=== PATIENT | male | born 1940 | race Caucasian/White ===

== ENCOUNTER 2017-11-17 07:43 | Day surgery (SDC) | payer MEDICARE, OTHER ==
[~2017-11-17 07:43] MED LIST: EPINEPHRINE INJ 1 MG/10 ML DISP.SYRIN ONE; FENTANYL CITRATE INJ/PF 100 MCG/2 ML AMPUL ONE; FLUMAZENIL INJ 0.5 MG/5 ML VIAL ONE; GLUCAGON,HUMAN RECOMB 1 MG INJ ONE; GLYCOPYRROLATE INJ 0.4 MG/2 ML VIAL ONE; NALOXONE HCL INJ/PF 0.4 MG/1 ML SDV ONE; ONDANSETRON HCL INJ/PF 4 MG/2 ML SDV ONE
[2017-11-17] MEDS: MIDAZOLAM 2 MG/2 ML INJ ONE ×2 (08:10→08:15)
--- NOTE | 2017-11-17 08:49 | Discharge Summary ---
Discharge Summary (SDC) - Discharge Final Diagnosis: Need for screening colonoscopy Date of Surgery: 11/17/17 Discharge Date: 11/17/17 Condition: Good Treatment or Instructions: [facility] [place] [address] POST ENDOSCOPY DISCHARGE INSTRUCTIONS 1. Diet: Start clear liquids that a regular diet as tolerated. 2. Resume all preoperative medications. All oral anticoagulants and aspirins can be resumed 24 hours after procedure. 3. If a polypectomy was performed some bleeding per rectum may occur. This should stop within 3 days. If not, please contact the office. 4. If you had a colonoscopy you may experience some bloating and delayed return of normal bowel function for several days, your regular bowel movement pattern should resume within a week. 5. Please contact [facility] at to make an appointment with Dr. Wylie for 1 to 3 weeks following procedure. 6. If you have any questions or concerns regarding your care,treatment plan or follow up, please contact our office. 7. Per clinical guidelines we recommend you undergo a repeat colonoscopy in 10 years. Referrals: JOSIE LOWE MD [Primary Care Provider] - Discharge Diet: As Tolerated Discharge Activity: Activity As Tolerated Home Care Assistance: None Needed Report the Following to Your Physician Immediately: Shortness of Breath, Increase in Pain, Fever over 101 Degrees
--- NOTE | 2017-11-17 08:51 | Operative Report ---
Operative Report DATE OF SURGERY: 11/17/17 PREOPERATIVE DIAGNOSIS: Need for screening colonoscopy POSTOPERATIVE DIAGNOSIS: Same OPERATION: Total colonoscopy to cecum SURGEON: TEE PAYNE ANESTHESIA: Moderate Sedation TISSUE REMOVED OR ALTERED: None COMPLICATIONS: None ESTIMATED BLOOD LOSS: None INTRAOPERATIVE FINDINGS: Below PROCEDURE: Obtaining informed consent the patient was taken from the preoperative holding area to the main endoscopy suite where monitoring devices were attached to the patient. Plan and surgical timeout were conducted The patient was placed in the left lateral decubitus position with knees to chest. A perianal examination was performed. There was no visible or palpable anorectal pathology. Sphincter tone was felt to be normal. The flexible adult colonoscope was advanced through the anal rectal canal, all the way to the cecum. Visualization of the cecum was achieved and the ileocecal valve, the appendiceal orifice and transillumination of the anterior abdominal wall. This was an excellent study on the well-prepped bowel. The colonoscope was withdrawn slowly and methodically checked and the mucosa carefully. There was no evidence of tumor, stricture, bleeding or polyp. There was no evidence of diverticuloses. 4 external hemorrhoids, small and collapsed the scope was slowly withdrawn through the anal rectal canal. Complete visualization of the rectum was achieved with photodocumentation. The scope was withdrawn to the patient's anus. The patient tolerated the procedure well and was taken to the recovery area in stable condition. Guidelines, patient be appropriate candidate for follow-up colonoscopy in 10 years
[2017-11-17 10:16] VITALS: BP 136/79
== END 2017-11-17 09:40 | disposition home or self-care (01) ==
LOC: END 07:43
PROVIDERS: ATTEND Surgery
PROC: 0DJD8ZZ Inspection of Lower Intestinal Tract, Via Natural or Artificial Opening Endoscopic (ICD-10-PCS; principal; 2017-11-17 08:15)
DX: Z12.11 Encounter for screening for malignant neoplasm of colon (principal); E78.00 Pure hypercholesterolemia, unspecified; I10 Essential (primary) hypertension; F17.210 Nicotine dependence, cigarettes, uncomplicated; Z79.82 Long term (current) use of aspirin; Z79.899 Other long term (current) drug therapy
CPT/HCPCS: G0121; J2250; J3010; 45378; J0171; J1610; J2310; J2405; J3490

== ENCOUNTER 2017-11-29 14:25 | Emergency (ER) | payer MEDICARE, OTHER ==
[2017-11-29 14:51] VITALS: BP 157/80
[2017-11-29] MEDS ORDERED: LIDOCAINE 4%/TETRACAINE 0.5%/EPI 0.18% 5 ML TOPICAL SOLN TOP ONE (15:14)
[2017-11-29] MEDS ORDERED: LIDOCAINE 1% INJ-PF (10 MG/ML) 30 ML SDV INJ ONE (15:17)
[2017-11-29] MEDS ORDERED: ACETAMINOPHEN 325 MG TABLET PO ONE (15:17)
[2017-11-29] MEDS ORDERED: CEPHALEXIN 500 MG CAPSULE PO ONE (15:17)
[2017-11-29] MEDS ORDERED: DIPH/PERTUSS(ACELL)/TETANUS VAC/PF 0.5 ML SYR (>=10YO) IM ONE (15:17)
--- NOTE | 2017-11-29 15:18 | ER Document Report ---
HPI - HPI Patient complains to provider of: Finger laceration Pain Level: 4 Context: Patient is a 77-year-old male who cut his finger on a table saw on the fat pad of the left thumb. Denies any numbness or tingling distal to the laceration. Tetanus not up-to-date. States bleeding is under control. Not on a blood thinner. Pack-a-day smoker - CONSTITUTIONAL Constitutional: DENIES: Fever, Chills - EENT EENT: DENIES: Sore Throat, Ear Pain, Eye problems - NEURO Neurology: DENIES: Headache, Weakness, Vision blurred, Dizzinesss / Vertigo - CARDIOVASCULAR Cardiovascular: DENIES: Chest pain - RESPIRATORY Respiratory: DENIES: Trouble Breathing, Coughing - GASTROINTESTINAL Gastrointestinal: DENIES: Abdominal Pain, Black / Bloody Stools - URINARY Urinary: DENIES: Dysuria, Urgency, Frequency - MUSCULOSKELETAL Musculoskeletal: REPORTS: Extremity pain - L thumb Past Medical History - Social History Smoking Status: Unknown if Ever Smoked Family History: Reviewed & Not Pertinent Patient has suicidal ideation: No Patient has homicidal ideation: No - Past Medical History Cardiac Medical History: Reports: Hx Coronary Artery Disease, Hx Hypercholesterolemia, Hx Hypertension Denies: Hx Heart Attack Pulmonary Medical History: Denies: Hx Asthma, Hx Bronchitis, Hx COPD, Hx Pneumonia Neurological Medical History: Reports: Hx Seizures - reports seizure x1 when had brain aneurysm. Denies: Hx Cerebrovascular Accident Renal/ Medical History: Denies: Hx Peritoneal Dialysis Musculoskeltal Medical History: Denies Hx Arthritis Past Surgical History: Reports: Hx Neurologic Surgery - Aneurysm repair - Immunizations Hx Diphtheria, Pertussis, Tetanus Vaccination: No Vertical Provider Document - CONSTITUTIONAL Notes: PHYSICAL EXAM GENERAL: Alert, interacts well. EXTREMITIES: Moves all 4 extremities spontaneously. No edema, radial and dorsalis pedis pulses 2/4 bilaterally. No cyanosis. Capillary refill less than 2 seconds in bilateral upper extremity digits. Equal underground repairer strength. NEUROLOGICAL: Alert and oriented x4. Normal speech. PSYCH: Normal affect, normal mood. SKIN: Warm, dry, normal turgor. Jagged laceration on the fat pad of the left thumb without active bleeding Measuring approximately 2 and half centimeters. - INFECTION CONTROL TRAVEL OUTSIDE OF THE [place] IN LAST 30 DAYS: No Course - Re-evaluation Re-evalutation: 11/29/17 17:05 Patient is a 77-year-old male is hemodynamic stable, no acute distress afebrile. Patient on blood thinners. Wound irrigated Betadine and saline and closed primarily at the bedside. X-ray without evidence of underlying foreign body or tuft fracture. Patient initiated on antibiotics and given strict return precautions. Stable for discharge home. - Vital Signs Vital signs: Temp Pulse Resp BP Pulse Ox 98.1 F 91 16 157/80 H 94 11/29/17 14:49 11/29/17 14:49 11/29/17 14:49 11/29/17 14:49 11/29/17 14:49 - Diagnostic Test Radiology reviewed: Image reviewed, Reports reviewed Procedures - Laceration/Wound Repair Left Thumb Wound length (cm): 2.5 Wound's Depth, Shape: Into muscle, Linear Laceration pre-procedure: Sterile PPE donned, Betadine prep applied, Sterile drapes applied Anesthetic type: 1% Lidocaine Volume Anesthetic (mLs): 10 Wound explored: Clean, No foreign body removed Irrigated w/ Saline (mLs): 500 Wound Repaired With: Sutures Suture Size/Type: 6:0 Number of Sutures: 6 Layer Closure?: No Post-procedure wound care: Sterile dressing applied, Splint applied Post-procedure NV exam normal: Yes Complications: No Discharge - Discharge Clinical Impression: Finger laceration Qualifiers: Encounter type: initial encounter Finger: thumb Damage to nail status: without damage Foreign body presence: without foreign body Laterality: left Qualified Code(s): S61.012A - Laceration without foreign body of left thumb without damage to nail, initial encounter Condition: Good Disposition: HOME, SELF-CARE Additional Instructions: LACERATION CARE: Your laceration has been sutured to keep the skin edges aligned during healing. The time of suture removal depends on the nature and location of your cut. Please follow the care instructions the doctor has outlined for you and return for further care, according to the schedule you've been given. Keep the wound and dressing clean. Unless you were told otherwise, you may shower daily, blotting the wound dry with a clean, unused towel. At other times, If the dressing gets wet or blood soaked, remove it and blot the wound dry, then reapply a new dressing. Unless you were instructed otherwise, dressings should be changed at least daily. If any signs of infection occur (swelling, redness, drainage, increasing tenderness, red streaks, tender lumps in the armpit or groin above the laceration, or fever), see the doctor immediately. SOAP CLEANSING: Gently wash the wound daily using a mild soap (like Ivory, Phisoderm, Neutrogena). Use warm water, rubbing gently until all debris, ooze, and crusting have been washed from the wound. Allow to dry briefly (about 10 minutes) after cleaning. Repeat this cleansing at least three times a day for the first two days and then once or twice a day. ANTIBIOTIC OINTMENT PROTECTION: Your wounds are such that dressing them is not practical or optional. After cleansing, you should apply a thin coating of antibiotic ointment ( Bacitracin, not Neosporin) to the wounds at least three times daily. This lessens infection risk, and may decrease the amount of scarring. Use a q-tip or dull butter knife, not your finger, to apply this ointment. Any debris or ooze which builds up in the ointment should be gently rubbed off with a sterile gauze pad. Harder crusting may need to be gently scrubbed off with a clean wash cloth with soap and warm water, perhaps applying a warm, wet wash cloth to the wound for ten minutes first. Development of redness, severe itching, or blistering may mean allergy to the ointment. See the doctor. TETANUS IMMUNIZATION GIVEN: You have been given an immunization against tetanus. Please record this in your records. In general, a booster is needed only once every 10 years. The tetanus shot protects against tetanus or "lockjaw," which is a complication of certain wound infections (the tetanus shot cannot protect against the actual infection). The immunization site may become warm and red due to local reaction. If this occurs, apply warm compresses and take aspirin or ibuprofen to reduce inflammation and discomfort. Return for evaluation if the reaction becomes severe. PROPHYLACTIC ANTIBIOTIC: The antibiotics which have been prescribed are designed to decrease the risk of infection. Only certain types of wounds benefit from this -- the typical cut, scrape, or burn DOES NOT require antibiotics. Of course, infection can still occur despite the use of prophylactic antibiotics. Your wound will heal with less chance of an infectious complication if you take the medication as directed. The most important dose is the FIRST dose, so don't delay filling the prescription! ORAL NARCOTIC MEDICATION: You have been given a prescription for pain control. This medication is a narcotic. It's best taken with food, as nausea can result if taken on an empty stomach. Don't operate machinery or drive within six hours of taking this medication. Do not combine this medicine with alcohol, or with any medication which can cause sedation (such as cold tablets or sleeping pills) unless you get permission from the physician. Narcotics tend to cause constipation. If possible, drink plenty of fluids and eat a diet high in fiber and fruits. FOLLOW-UP CARE: Your sutures should be removed in 8-14 days. To facilitate a timely removal of your sutures, you may return to the Emergency Department at [facility]. You do not need to call for an appointment, but the best time to come in for suture removal is early in the morning. If you have been referred to another physician for follow-up care, call that physicians office for an appointment as you were instructed. If you experience a significant change in your laceration, or if you are concerned there may be an infection (swelling, redness, drainage, increasing tenderness, red streaks, tender lumps in the armpit or groin above the laceration, or fever) , return to the Emergency Department immediately re-evaluation. Prescriptions: Cephalexin Monohydrate [Keflex 500 mg Capsule] 500 mg PO Q6H 7 Days capsule Forms: Elevated Blood Pressure Referrals: JOSIE LOWE MD [Primary Care Provider] - Follow up as needed (as directed 8 -14 days)
--- NOTE | 2017-11-29 16:43 | RADIOLOGY REPORT (SQ) ---
EXAM DESCRIPTION: FINGER LEFT COMPLETED DATE/TIME: 11/29/2017 4:29 pm REASON FOR STUDY: cut on table saw COMPARISON: None. NUMBER OF VIEWS: Three views. TECHNIQUE: AP, lateral, and oblique images acquired of the left thumb. LIMITATIONS: None. FINDINGS: MINERALIZATION: Normal. BONES: No acute fracture or dislocation. Degenerative changes in the interphalangeal joint with oste ophytes. No worrisome bone lesions. SOFT TISSUES: Distal soft tissue injury. No foreign body. OTHER: No other significant finding. IMPRESSION: DISTAL SOFT TISSUE INJURY. NO FOREIGN BODY. NO FRACTURE OR BONY FINDINGS. COMMENT: SITE OF TRAUMA/COMPLAINT MARKED/STAMP COMPLETED: YES. TECHNICAL DOCUMENTATION: JOB ID: [id number] [employer]- All Rights Reserved Reading location - IP/workstation name: [email or web address]
== END 2017-11-29 17:19 | disposition home or self-care (01) ==
LOC: ER 14:25
PROC: 0HQGXZZ Repair Left Hand Skin, External Approach (ICD-10-PCS; principal; 2017-11-29)
DX: S61.012A Laceration without foreign body of left thumb without damage to nail, initial encounter (principal); W29.8XXA Contact with other powered hand tools and household machinery, initial encounter; Y93.H3 Activity, building and construction; Z23 Encounter for immunization
CPT/HCPCS: 99283; 73140; 90715; 12001; A9270 ×2; J3490

== ENCOUNTER 2017-12-13 05:53 | Emergency (ER) | payer MEDICARE, OTHER ==
[2017-12-13 05:59] VITALS: BP 171/71
--- NOTE | 2017-12-13 06:43 | ER Document Report ---
ED Suture/Wound Recheck - General Chief Complaint: Suture Removal Stated Complaint: SUTURE REMOVAL Time Seen by Provider: 12/13/17 06:10 Mode of Arrival: Ambulatory Information source: Patient Notes: 77-year-old male presents with request for suture removal. Patient states that 2 weeks prior to arrival he cut his right thumb with a table saw. He was seen at that time and sutures were placed. TRAVEL OUTSIDE OF THE [place] IN LAST 30 DAYS: No - HPI Previous ED treatment: Laceration repair Quality of pain: No pain Symptoms since procedure: No complaints Exacerbated by: Denies Relieved by: Denies - Related Data Allergies/Adverse Reactions: No Known Allergies Allergy (Verified 11/29/17 14:26) Past Medical History - General Information source: Patient - Social History Smoking Status: Unknown if Ever Smoked Frequency of alcohol use: None Drug Abuse: None Family History: Reviewed & Not Pertinent Patient has suicidal ideation: No Patient has homicidal ideation: No - Past Medical History Cardiac Medical History: Reports: Hx Coronary Artery Disease, Hx Hypercholesterolemia, Hx Hypertension Denies: Hx Heart Attack Pulmonary Medical History: Denies: Hx Asthma, Hx Bronchitis, Hx COPD, Hx Pneumonia Neurological Medical History: Reports: Hx Seizures - reports seizure x1 when had brain aneurysm. Denies: Hx Cerebrovascular Accident Renal/ Medical History: Denies: Hx Peritoneal Dialysis Musculoskeltal Medical History: Denies Hx Arthritis Past Surgical History: Reports: Hx Neurologic Surgery - Aneurysm repair - Immunizations Hx Diphtheria, Pertussis, Tetanus Vaccination: No Review of Systems - Review of Systems Notes: Patient denies fever, chills, nausea, vomiting, headache, ear pain, sore throat , cough, chest pain, shortness of breath, abdominal pain, back pain, dysuria, hematuria, rash, SI/HI. Physical Exam - Vital signs Vitals: Temp Pulse Resp BP Pulse Ox 97.7 F 94 22 H 171/71 H 97 12/13/17 05:54 12/13/17 05:54 12/13/17 05:54 12/13/17 05:54 12/13/17 05:54 Interpretation: Normal, Hypertensive - Notes Notes: PHYSICAL EXAMINATION: GENERAL: Well-appearing, well-nourished and in no acute distress. HEAD: Atraumatic, normocephalic. EYES: Pupils equal round and reactive to light, extraocular movements intact, sclera anicteric, conjunctiva are normal. ENT: Nares patent, oropharynx clear without exudates. Moist mucous membranes. NECK: Normal range of motion, supple without lymphadenopathy LUNGS: Breath sounds clear to auscultation bilaterally and equal. No wheezes rales or rhonchi. HEART: Regular rate and rhythm without murmurs ABDOMEN: Soft, nontender, nondistended abdomen. No guarding, no rebound. No masses appreciated. Musculoskeletal: Right thumb with mild swelling and a 2.5 cm wound with 8 sutures placed. Wound has dehisced. No surrounding erythema, tenderness or purulent discharge. NEUROLOGICAL: Cranial nerves grossly intact. Normal speech, normal gait. Normal sensory, motor exams PSYCH: Normal mood, normal affect. SKIN: Warm, Dry, normal turgor, no rashes or lesions noted. Course - Re-evaluation Re-evalutation: 12/13/17 07:34 77-year-old male presents with request for suture removal after cutting his right thumb with a finger saw. Patient had sutures placed 2 weeks prior to arrival. Patient was seen by myself upon arrival. Vital signs were reviewed and within normal limits. Patient is afebrile, and not hypoxic. Patient does not appear toxic or dehydrated. They are in no acute distress. Previous medical records and nursing notes reviewed. Sutures removed. Steri-Strips used to approximate wound edges. Advised the patient to let the area air out when possible but cover when out or working in the garden. There is no evidence of secondary infection. Granulation tissue present. Patient was discharged home in stable condition. - Vital Signs Vital signs: Temp Pulse Resp BP Pulse Ox 97.7 F 94 22 H 171/71 H 97 12/13/17 05:54 12/13/17 05:54 12/13/17 05:54 12/13/17 05:54 12/13/17 05:54 Discharge - Discharge Clinical Impression: Visit for suture removal Disposition: HOME, SELF-CARE Instructions: Suture Removal Additional Instructions: Follow up with your physician tomorrow for further care or return to the ED IMMEDIATELY if symptoms worsen or new concerns occur. If you cannot afford to follow up with your primary care physician a list of low cost clinics have been provided at the end of your discharge papers as well. Forms: Elevated Blood Pressure
== END 2017-12-13 06:55 | disposition home or self-care (01) ==
LOC: ER 05:53
DX: S61.011D Laceration without foreign body of right thumb without damage to nail, subsequent encounter (principal); W29.8XXD Contact with other powered hand tools and household machinery, subsequent encounter; I25.10 Atherosclerotic heart disease of native coronary artery without angina pectoris; I10 Essential (primary) hypertension

== ENCOUNTER 2019-04-25 11:25 | Emergency (ER) | payer MEDICARE, OTHER ==
[2019-04-25 11:55] LABS: ABSOLUTE BASOPHILS # (AUTO) 0.1 10^3/uL (0.0-0.2); ABSOLUTE LYMPHOCYTES (AUTO) 1.1 10^3/uL (0.5-4.7); ABSOLUTE MONOCYTES (AUTO) 0.5 10^3/uL (0.1-1.4); ABSOLUTE NEUT (AUTO) 8.1 10^3/uL (1.7-8.2); BASOPHILS % (AUTO) 0.8 % (0-2); EOSINOPHILS % (AUTO) 0.3 % (0-6); HEMATOCRIT 40.7 % (37.9-51.0); HEMOGLOBIN 13.7 g/dL (13.5-17.0); LYMPHOCYTES % (AUTO) 11.5 % (13-45); MEAN CORPUSCULAR HEMOGLOBIN 31.6 pg (27.0-33.4); MEAN CORPUSCULAR HGB CONC 33.6 g/dL (32.0-36.0); MEAN CORPUSCULAR VOLUME 94 fl (80-97); MONOCYTES % (AUTO) 4.9 % (3-13); PLATELET COUNT 226 10^3/uL (150-450); RED BLOOD COUNT 4.32 10^6/uL (4.35-5.55); RED CELL DISTRIBUTION WIDTH 13.8 % (11.5-14.0); SEGMENTED NEUTROPHILS % (AUTO) 82.5 % (42-78); TOTAL CELLS COUNTED % (AUTO) 100 %; WHITE BLOOD COUNT 9.9 10^3/uL (4.0-10.5)
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
[2019-04-25 12:19] LABS: ALBUMIN 4.2 g/dL (3.5-5.0); ALKALINE PHOSPHATASE 65 U/L (38-126); ANION GAP 13 (5-19); ASPARTATE AMINO TRANSFERASE 22 U/L (17-59); BILIRUBIN,DIRECT 0.3 mg/dL (0.0-0.4); BILIRUBIN,TOTAL 0.6 mg/dL (0.2-1.3); BLOOD UREA NITROGEN 22 mg/dL (7-20); CALCIUM 9.7 mg/dL (8.4-10.2); CARBON DIOXIDE 21 mmol/L (22-30); CHLORIDE 107 mmol/L (98-107); GLUCOSE 155 mg/dL (75-110); POTASSIUM 4.2 mmol/L (3.6-5.0)
[2019-04-25] MEDS ORDERED: NORMAL SALINE 500 ML IV ONE (12:36)
[2019-04-25 12:37] LABS: APPEARANCE,URINE SLIGHTLY-CLOUDY; BILIRUBIN,URINE NEGATIVE (NEGATIVE); COLOR,URINE YELLOW; GLUCOSE, URINE NEGATIVE (NEGATIVE); KETONES,URINE TRACE mg/dL (NEGATIVE); LEUKOCYTE ESTERASE,URINE NEGATIVE (NEGATIVE); NITRITE,URINE NEGATIVE (NEGATIVE); PROTEIN,URINE 30 mg/dL (NEGATIVE); URINE SPECIFIC GRAVITY 1.014; UROBILINOGEN,URINE NEGATIVE mg/dL (<2.0)
[2019-04-25] MEDS ORDERED: DIPH/PERTUSS(ACELL)/TETANUS VAC/PF 0.5 ML SYR (>=10YO) IM ONE (13:15)
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
[2019-04-25] MEDS ORDERED: ASPIRIN 325 MG TABLET PO ONE (13:47)
[2019-04-25 14:11] VITALS: BP 183/92
--- NOTE | 2019-04-26 14:28 | EKG REPORT ---
SEVERITY:- ABNORMAL ECG - SINUS TACHYCARDIA NONSPECIFIC T ABNORMALITIES, INFERIOR LEADS : Confirmed by: Josiah Day 26-Apr-2019 14:27:22
== END 2019-04-25 14:09 | disposition home or self-care (01) ==
LOC: ER 11:25
DX: M62.838 Other muscle spasm (principal); S80.212A Abrasion, left knee, initial encounter; S80.211A Abrasion, right knee, initial encounter; X58.XXXA Exposure to other specified factors, initial encounter; M54.2 Cervicalgia; F17.210 Nicotine dependence, cigarettes, uncomplicated; I25.10 Atherosclerotic heart disease of native coronary artery without angina pectoris; I10 Essential (primary) hypertension
CPT/HCPCS: 93005; 99284; 90471; 36415; 82550; 83735; 84100; 85025; 80053; 81001; 84484; 90715; 93010; A9270; J7040

== ENCOUNTER 2019-05-06 09:21 | Inpatient (IN) | payer MEDICARE, OTHER ==
[2019-05-06] MEDS ORDERED: NORMAL SALINE 1000 ML 1,000 ML IV ONE (09:57)
--- NOTE | 2019-05-06 10:02 | ER Document Report ---
ED Dizziness/Weakness - General Chief Complaint: Dizziness Stated Complaint: FALL/KNEE LACERATION Time Seen by Provider: 05/06/19 09:42 Information source: Patient Notes: Patient states that he was working out in the yard and he thinks he may have had a heat stroke. Patient states that he started to have muscle cramps in his leg that caused him to fall injuring his knees. Patient denies any head injury or loss of consciousness. Patient was very sweaty but attributes this to working outside in the heat. Patient denies any chest pain or shortness of breath. Patient is tachypneic at this time. No nausea or vomiting. TRAVEL OUTSIDE OF THE [place] IN LAST 30 DAYS: No - HPI Onset: Just prior to arrival Onset/Duration: Sudden Quality of pain: Cramping Pain Level: 3 Associated symptoms: Recent fall. denies: Chest pain, Vertigo, Vomiting Baseline gait: Walks w/o assistance - Related Data Allergies/Adverse Reactions: No Known Allergies Allergy (Verified 11/29/17 14:26) Past Medical History - General Information source: Patient - Social History Smoking Status: Current Every Day Smoker Smoking Education Provided: Yes Frequency of alcohol use: None Drug Abuse: None Lives with: Spouse/Significant other Family History: Reviewed & Not Pertinent - Past Medical History Cardiac Medical History: Reports: Hx Coronary Artery Disease, Hx Hypercholesterolemia, Hx Hypertension Neurological Medical History: Reports: Hx Seizures - reports seizure x1 when had brain aneurysm Musculoskeletal Medical History: Denies Hx Arthritis Past Surgical History: Reports: Hx Neurologic Surgery - Aneurysm repair - Immunizations Hx Diphtheria, Pertussis, Tetanus Vaccination: No Review of Systems - Review of Systems Constitutional: No symptoms reported EENT: No symptoms reported Cardiovascular: denies: Chest pain Respiratory: No symptoms reported. denies: Cough, Short of breath Gastrointestinal: No symptoms reported. denies: Abdominal pain, Nausea, Vomiting Genitourinary: No symptoms reported Male Genitourinary: No symptoms reported Musculoskeletal: Muscle pain - Muscle cramps to right leg, Neck pain. denies: Back pain Skin: No symptoms reported Hematologic/Lymphatic: No symptoms reported Neurological/Psychological: No symptoms reported. denies: Weakness, Lost consciousness Physical Exam - Vital signs Vitals: Resp BP Pulse Ox 30 H 145/79 H 94 05/06/19 09:33 05/06/19 09:33 05/06/19 09:33 - General General appearance: Alert In distress: Mild - HEENT Head: Normocephalic, Atraumatic Eyes: Normal Conjunctiva: Normal Nasal: Normal Mouth/Lips: Normal Mucous membranes: Dry Pharynx: Normal Neck: No: Lymphadenopathy Notes: Posterior paraspinal cervical tenderness - Respiratory Respiratory status: Tachypnea Chest status: Nontender Breath sounds: Normal Chest palpation: Normal. No: Tender - Cardiovascular Rhythm: Tachycardia Heart sounds: S1 appreciated, S2 appreciated Murmur: No - Abdominal Inspection: Normal Distension: No distension Bowel sounds: Normal Tenderness: Nontender Organomegaly: No organomegaly - Back Back: Normal, Nontender. No: CVA tenderness - Extremities General upper extremity: Normal inspection, Normal strength General lower extremity: Tender - Bilateral knee tenderness with overlying abrasions, Normal strength Knee: Tender, Abrasion, Pain with ROM. No: Deformity, Dislocation, Laceration - Neurological Neuro grossly intact: Yes Cognition: Normal Orientation: AAOx4 [place] Coma Scale Eye Opening: Spontaneous [place] Coma Scale Verbal: Oriented [place] Coma Scale Motor: Obeys Commands [place] Coma Scale Total: 15 - Psychological Associated symptoms: Normal affect, Normal mood - Skin Skin Temperature: Warm Skin Color: Normal Skin irregularity: other - Abrasion over bilateral knees Course - Re-evaluation Re-evalutation: 05/06/19 12:03 Patient continues tachypnic Patient without any shortness of breath or chest pain symptoms at this time. Patient does complain of neck pain and occipital headache pain. Family is concerned given his previous history of aneurysm. Consulted with regarding patient presentation, recommends treating patient's pain symptoms at this time and noncontrast CT imaging of the head. Recommends consultation with hospitalist for admission given the fact that patient had two falls at home with exertion. 05/06/19 12:21 Patient mildly hypertensive and has not had his blood pressure medication today. Patient takes amlodipine and Micardis. Spoke with pharmacy staff who recommends substituting losartan 50 mg for his 40 mg Micardis dose. 05/06/19 13:[address] Galindo who states that he will be down to evaluate patient. 05/06/19 14:55 Family member at bedside states that hospitalist did report that they were going to admit patient to telemetry. Patient continues hypotensive with blood pressure 180 systolic. Patient stood up in the pill felt down. Suspect that patient did not take both antihypertensive medications that the nurse had admin istered, although nurse tossed pill in the trash can so it could not be identified. - Vital Signs Vital signs: Temp Pulse Resp BP Pulse Ox 98.0 F 17 151/77 H 98 05/06/19 09:39 05/06/19 18:01 05/06/19 18:00 05/06/19 18:01 - Laboratory Result Diagrams: 05/06/19 09:45 05/06/19 09:45 Laboratory results interpreted by me: 05/06/19 05/06/19 05/06/19 09:45 09:45 10:21 WBC 14.9 H RDW 14.2 H Lymph % (Auto) 7.4 L Absolute Neuts (auto) 12.9 H Seg Neutrophils % 86.4 H Carbonic Acid 1.01 L ABG pCO2 33.7 L ABG pO2 59.0 L ABG Total CO2 21.8 L ABG O2 Saturation 91.0 L Carbon Dioxide 18 L BUN 22 H Creatinine 1.35 H Est GFR (MDRD) Non-Af 51 L Glucose 159 H Urine Protein Urine Ascorbic Acid 05/06/19 12:15 WBC RDW Lymph % (Auto) Absolute Neuts (auto) Seg Neutrophils % Carbonic Acid ABG pCO2 ABG pO2 ABG Total CO2 ABG O2 Saturation Carbon Dioxide BUN Creatinine Est GFR (MDRD) Non-Af Glucose Urine Protein 30 H Urine Ascorbic Acid 20 H - EKG Interpretation by Me EKG shows normal: Sinus rhythm Rate: Tachycardia When compared to previous EKG there are: No significant change Additional EKG results interpreted by me: 05/06/19 10:[address] elevation, QTc 462 Discharge - Discharge Clinical Impression: Dizziness, Dehydration, Near syncope Fall Qualifiers: Encounter type: initial encounter Qualified Code(s): W19.XXXA - Unspecified fall, initial encounter Condition: Stable Disposition: ADMITTED INPATIENT Admitting Provider: Mateo (Hospitalist) Unit Admitted: Telemetry
[2019-05-06 10:08] LABS: ABSOLUTE BASOPHILS # (AUTO) 0.1 10^3/uL (0.0-0.2); ABSOLUTE EOSINOPHILS # (AUTO) 0.1 10^3/uL (0.0-0.6); ABSOLUTE LYMPHOCYTES (AUTO) 1.1 10^3/uL (0.5-4.7); ABSOLUTE MONOCYTES (AUTO) 0.8 10^3/uL (0.1-1.4); ABSOLUTE NEUT (AUTO) 12.9 10^3/uL (1.7-8.2); BASOPHILS % (AUTO) 0.5 % (0-2); EOSINOPHILS % (AUTO) 0.4 % (0-6); HEMATOCRIT 42.9 % (37.9-51.0); HEMOGLOBIN 14.4 g/dL (13.5-17.0); LYMPHOCYTES % (AUTO) 7.4 % (13-45); MEAN CORPUSCULAR HEMOGLOBIN 31.3 pg (27.0-33.4); MEAN CORPUSCULAR HGB CONC 33.6 g/dL (32.0-36.0); MEAN CORPUSCULAR VOLUME 93 fl (80-97); MONOCYTES % (AUTO) 5.3 % (3-13); PLATELET COUNT 292 10^3/uL (150-450); RED CELL DISTRIBUTION WIDTH 14.2 % (11.5-14.0); SEGMENTED NEUTROPHILS % (AUTO) 86.4 % (42-78); TOTAL CELLS COUNTED % (AUTO) 100 %; WHITE BLOOD COUNT 14.9 10^3/uL (4.0-10.5)
[2019-05-06] MEDS ORDERED: IPRATROPIUM/ALBUTEROL 0.5-2.5 MG/3 ML AMPUL NEB ONE (10:15)
[2019-05-06 10:16] LABS: ALBUMIN 4.5 g/dL (3.5-5.0); ALKALINE PHOSPHATASE 65 U/L (38-126); ANION GAP 17 (5-19); ASPARTATE AMINO TRANSFERASE 28 U/L (17-59); BILIRUBIN,DIRECT 0.2 mg/dL (0.0-0.4); BILIRUBIN,TOTAL 0.8 mg/dL (0.2-1.3); BLOOD UREA NITROGEN 22 mg/dL (7-20); CALCIUM 9.5 mg/dL (8.4-10.2); CARBON DIOXIDE 18 mmol/L (22-30); CHLORIDE 103 mmol/L (98-107); CREATINE KINASE 71 U/L (55-170); GLUCOSE 159 mg/dL (75-110); POTASSIUM 4.1 mmol/L (3.6-5.0); TOTAL PROTEIN 7.4 g/dL (6.3-8.2)
--- NOTE | 2019-05-06 10:26 | EKG REPORT ---
SEVERITY:- BORDERLINE ECG - SINUS TACHYCARDIA BORDERLINE T ABNORMALITIES, INFERIOR LEADS : Confirmed by: Lucy Noel MD 06-May-2019 10:25:14
[2019-05-06 10:36] LABS: ARTERIAL BLOOD FIO2 ROOM AIR; ARTERIAL BLOOD H2CO3 1.01 mmol/L (1.05-1.35); ARTERIAL BLOOD HCO3 20.7 mmol/L (20-24); ARTERIAL BLOOD PCO2 33.7 mmHg (35-45); ARTERIAL BLOOD PH 7.41 (7.35-7.45); ARTERIAL BLOOD TOTAL CO2 21.8 mmol/L (23-27)
--- NOTE | 2019-05-06 11:06 | RADIOLOGY REPORT (SQ) ---
EXAM DESCRIPTION: CHEST 2 VIEWS; KNEE RIGHT 4 VIEWS; KNEE LEFT 4 VIEW COMPLETED DATE/TIME: 05/06/2019 10:55 am REASON FOR STUDY: tachypnea; fall, knee pain COMPARISON: None. FINDINGS: Two view chest: Clear lungs without evidence of pneumothorax. Cardiomegaly without failu re. No fracture. No mediastinal contour abnormality. Four views right knee: Small effusion. Mild degenerative patellar spurring. No fracture or bone le carlos. Osteopenic. Four views right knee: Similar findings. Osteopenic with mild degenerative patellar spurring. Trac e effusion. No fracture or bone lesion. TECHNICAL DOCUMENTATION: JOB ID: [id number] Reading location - IP/workstation name: [email or web address]
--- NOTE | 2019-05-06 11:08 | RADIOLOGY REPORT (SQ) ---
EXAM DESCRIPTION: CHEST 2 VIEWS; KNEE RIGHT 4 VIEWS; KNEE LEFT 4 VIEW COMPLETED DATE/TIME: 05/06/2019 10:55 am REASON FOR STUDY: tachypnea; fall, knee pain COMPARISON: None. FINDINGS: Two view chest: Clear lungs without evidence of pneumothorax. Cardiomegaly without failu re. No fracture. No mediastinal contour abnormality. Four views right knee: Small effusion. Mild degenerative patellar spurring. No fracture or bone le carlos. Osteopenic. Four views right knee: Similar findings. Osteopenic with mild degenerative patellar spurring. Trac e effusion. No fracture or bone lesion. TECHNICAL DOCUMENTATION: JOB ID: [id number] Reading location - IP/workstation name: [email or web address]
--- NOTE | 2019-05-06 11:08 | RADIOLOGY REPORT (SQ) ---
EXAM DESCRIPTION: CHEST 2 VIEWS; KNEE RIGHT 4 VIEWS; KNEE LEFT 4 VIEW COMPLETED DATE/TIME: 05/06/2019 10:55 am REASON FOR STUDY: tachypnea; fall, knee pain COMPARISON: None. FINDINGS: Two view chest: Clear lungs without evidence of pneumothorax. Cardiomegaly without failu re. No fracture. No mediastinal contour abnormality. Four views right knee: Small effusion. Mild degenerative patellar spurring. No fracture or bone le carlos. Osteopenic. Four views right knee: Similar findings. Osteopenic with mild degenerative patellar spurring. Trac e effusion. No fracture or bone lesion. TECHNICAL DOCUMENTATION: JOB ID: [id number] Reading location - IP/workstation name: [email or web address]
[2019-05-06] MEDS ORDERED: FENTANYL CITRATE INJ/PF 100 MCG/2 ML AMPUL IV ONE (12:05)
[2019-05-06] MEDS ORDERED: AMLODIPINE BESYLATE 2.5 MG TABLET PO ONE (12:17)
[2019-05-06] MEDS ORDERED: LOSARTAN POTASSIUM 50 MG TABLET PO ONE (12:20)
[2019-05-06 12:43] LABS: APPEARANCE,URINE CLEAR; BILIRUBIN,URINE NEGATIVE (NEGATIVE); COLOR,URINE YELLOW; GLUCOSE, URINE NEGATIVE (NEGATIVE); KETONES,URINE NEGATIVE (NEGATIVE); LEUKOCYTE ESTERASE,URINE NEGATIVE (NEGATIVE); NITRITE,URINE NEGATIVE (NEGATIVE); PROTEIN,URINE 30 mg/dL (NEGATIVE); URINE SPECIFIC GRAVITY 1.018; UROBILINOGEN,URINE NEGATIVE mg/dL (<2.0)
--- NOTE | 2019-05-06 12:47 | RADIOLOGY REPORT (SQ) ---
EXAM DESCRIPTION: CT HEAD WITHOUT COMPLETED DATE/TIME: 05/06/2019 12:31 pm REASON FOR STUDY: HOLLEY, hx aneurysm, fall COMPARISON: None. TECHNIQUE: Axial images acquired through the brain without intravenous contrast. Images reviewed wit h bone, brain and subdural windows. Images stored on PACS. All CT scanners at this facility use dose modulation, iterative reconstruction, and/or weight based d osing when appropriate to reduce radiation dose to as low as reasonably achievable (ALARA). [facility]: Dose Right [facility]: CareDose [facility]: Dose Right [facility]: Teradose 4D [facility]: Smart G-cluster RADIATION DOSE: CT Rad equipment meets quality standard of care and radiation dose reduction techniq ues were employed. CTDIvol: 53.2 mGy. DLP: 1150 mGy-cm.. LIMITATIONS: None. FINDINGS: VENTRICLES: Normal size and contour. CEREBRUM: Postprocedural changes from aneurysm clip with mild frontal encephalomalacia, right greater than left. No hemorrhage. No midline shift. Otherwise Age appropriate white matter. No evidence fo r acute infarction. CEREBELLUM: No masses. No hemorrhage. No alteration of density. No evidence for acute infarction. EXTRA-AXIAL SPACES: No fluid collections. ORBITS AND GLOBE: No intra- or extraconal masses. Normal contour of globe without masses. CALVARIUM: No fracture. PARANASAL SINUSES: No fluid or mucosal thickening. SOFT TISSUES: No mass or hematoma. OTHER: No other significant finding. IMPRESSION: NO ACUTE INTRACRANIAL FINDINGS. EVIDENCE OF ACUTE STROKE: NO. TECHNICAL DOCUMENTATION: JOB ID: [id number] Quality ID # [id number]: Final reports with documentation of one or more dose reduction techniques (e.g., Au tomated exposure control, adjustment of the mA and/or kV according to patient size, use of iterative reconstruction technique) 2010 [employer]- All Rights Reserved Reading location - IP/workstation name: [email or web address]
--- NOTE | 2019-05-06 15:47 | PDOC H&P ---
History of Present Illness Admission Date/PCP: JOSIE LOWE MD History of Present Illness: SHEMAR KING JR is a 78 year old male who is a current every day smoker with a history of COPD and hypertension hyperlipidemia who came to the hospital about a week and a half ago with dehydration and heat exhaustion. He began to feel better after some IV fluids and then went home. Said he was in his usual state of health until this morning when he went outside to do some yard work. He told me he was only out there for 20 to 30 minutes but he told someone else he was up there for an hour or 2. What ever the case, he said that essentially the same thing happened to him this time is happened a week and a half ago: He had been out in the yard doing some work for some length of time when his legs began to feel weak and shaky and then he fell down his knees. Apparently EMS came to get him this time. He was sweaty and tachypneic apparently for EMS. There is a nurse who works in this hospital who was with him in the ER and she says that he is sort of tremulous and sort of displays mild motor agitation at baseline. He gave a urine sample and it was very concentrated. His creatinine was little bit elevated above baseline. His blood pressure was also substantially elevated. He said he takes his blood pressure medicine at night and says that he took it last night. His nurse friend said he does not drink anywhere near enough water, and the patient agreed with that statement. Other than his blood pressure, his vital signs were remarkable, except for his respiratory rate, and his nurse friend said that he always kind of breathes like that. He denies any chest pain or shortness of breath. He was supposedly hypoxemic initially but he is off nasal cannula now. He said he felt like he had a cramp in 1 of his legs earlier. He said now he otherwise feels fine. He is being admitted for some IV fluids and blood pressure control. Past Medical History Cardiac Medical History: Reports: Coronary Artery Disease, Hyperlipidema, Hypertension Denies: Myocardial Infarction Pulmonary Medical History: Denies: Asthma, Bronchitis, Chronic Obstructive Pulmonary Disease (COPD), Pneumonia Neurological Medical History: Reports: Seizures - reports seizure x1 when had brain aneurysm Musculoskeltal Medical History: Denies: Arthritis Hematology: Denies: Anemia Social History Lives with: Spouse/Significant other Smoking Status: Current Every Day Smoker Family History Family History: Reviewed & Not Pertinent Parental Family History Reviewed: Yes - He is not sure what they had Children Family History Reviewed: Unknown Sibling(s) Family History Reviewed.: Unknown Medication/Allergy Home Medications: Telmisartan [Micardis 20 mg Tablet] 40 mg PO DAILY 05/09/13 Amlodipine Besylate [Norvasc 5 mg Tablet] 5 mg PO DAILY 05/06/19 Aspirin [Ecotrin 81 mg EC Tablet] 81 mg PO DAILY 05/06/19 Montelukast Sodium [Singulair 10 mg Tablet] 10 mg PO QHS 05/06/19 Multivit-Min/FA/Lycopen/Lutein [Centrum Silver Men Tablet] 1 each PO DAILY 05/06/19 [place]-3 Fatty Acids/Fish Oil [Fish Oil 1,000 Mg Capsule] 1 each PO DAILY 05/06/19 Rosuvastatin Calcium [Crestor] 10 mg PO QHS 05/06/19 Allergies/Adverse Reactions: No Known Allergies Allergy (Verified 11/29/17 14:26) Review of Systems All systems: reviewed and no additional remarkable complaints except as stated - All systems were reviewed and were negative except as noted in the HPI Physical Exam Vital Signs: Temp Pulse Resp BP Pulse Ox 98.0 F 18 186/95 H 97 05/06/19 09:39 05/06/19 14:01 05/06/19 14:00 05/06/19 14:01 Intake & Output 05/05/19 05/06/19 05/07/19 06:59 06:59 06:59 Intake Total 1000 Balance 1000 Weight 83.8 kg General appearance: PRESENT: no acute distress, cooperative, disheveled, obese, other - Smells strongly of tobacco smoke Head exam: PRESENT: atraumatic, normocephalic Eye exam: PRESENT: EOMI, PERRLA. ABSENT: conjunctival injection, nystagmus, scleral icterus Ear exam: PRESENT: normal external ear exam Mouth exam: PRESENT: dry mucosa, neck supple Teeth exam: PRESENT: poor dentation Throat exam: ABSENT: post pharyngeal erythema Neck exam: PRESENT: full ROM. ABSENT: carotid bruit, JVD, lymphadenopathy, meningismus, tenderness, thyromegaly Respiratory exam: PRESENT: clear to auscultation caio - A bit diminished but clear, symmetrical, tachypnea, unlabored. ABSENT: accessory muscle use, chest wall tenderness, crackles, prolonged expiratory phas, rhonchi, wheezes Cardiovascular exam: PRESENT: RRR, +S1, +S2. ABSENT: systolic murmur Pulses: ABSENT: normal carotid pulses Vascular exam: ABSENT: normal capillary refill GI/Abdominal exam: PRESENT: normal bowel sounds, soft. ABSENT: distended, guarding, rebound, tenderness Extremities exam: ABSENT: clubbing, joint swelling, pedal edema Musculoskeletal exam: PRESENT: normal inspection. ABSENT: deformity Neurological exam: PRESENT: alert, awake, oriented to person, oriented to place, oriented to situation, CN II-XII grossly intact, other - He displayed what appeared to be a motor agitation, like he cannot sit still. ABSENT: motor sensory deficit Psychiatric exam: PRESENT: appropriate affect, normal mood Skin exam: PRESENT: dry, warm, other - He had bandaged abrasions on both knees Results Laboratory Results: 05/06/19 09:45 05/06/19 09:45 05/06/19 05/06/19 05/06/19 09:45 09:45 10:21 WBC 14.9 H RBC 4.60 Hgb 14.4 Hct 42.9 MCV 93 MCH 31.3 MCHC 33.6 RDW 14.2 H Plt Count 292 Seg Neutrophils % 86.4 H Carbonic Acid 1.01 L HCO3/H2CO3 Ratio 20:1 ABG pH 7.41 ABG pCO2 33.7 L ABG pO2 59.0 L ABG HCO3 20.7 ABG O2 Saturation 91.0 L ABG Base Excess -3.0 FiO2 ROOM AIR Sodium 137.8 Potassium 4.1 Chloride 103 Carbon Dioxide 18 L Anion Gap 17 BUN 22 H Creatinine 1.35 H Est GFR ( Amer) > 60 Glucose 159 H Calcium 9.5 Magnesium 2.3 Total Bilirubin 0.8 AST 28 Alkaline Phosphatase 65 Total Protein 7.4 Albumin 4.5 Urine Color Urine Appearance Urine pH Ur Specific [place] Urine Protein Urine Glucose (UA) Urine Ketones Urine Blood Urine Nitrite Ur Leukocyte Esterase Urine WBC (Auto) Urine RBC (Auto) 05/06/19 12:15 WBC RBC Hgb Hct MCV MCH MCHC RDW Plt Count Seg Neutrophils % Carbonic Acid HCO3/H2CO3 Ratio ABG pH ABG pCO2 ABG pO2 ABG HCO3 ABG O2 Saturation ABG Base Excess FiO2 Sodium Potassium Chloride Carbon Dioxide Anion Gap BUN Creatinine Est GFR ( Amer) Glucose Calcium Magnesium Total Bilirubin AST Alkaline Phosphatase Total Protein Albumin Urine Color YELLOW Urine Appearance CLEAR Urine pH 5.0 Ur Specific [place] 1.018 Urine Protein 30 H Urine Glucose (UA) NEGATIVE Urine Ketones NEGATIVE Urine Blood NEGATIVE Urine Nitrite NEGATIVE Ur Leukocyte Esterase NEGATIVE Urine WBC (Auto) 2 Urine RBC (Auto) 1 05/06/19 05/06/19 09:45 09:45 Creatine Kinase 71 Troponin I 0.037 Impressions: Head CT 05/06/19 12:03 IMPRESSION: NO ACUTE INTRACRANIAL FINDINGS. EVIDENCE OF ACUTE STROKE: NO. Assessment and Plan - Diagnosis (1) Hypertensive urgency Is this a current diagnosis for this admission?: Yes Plan: He appears asymptomatic from his blood pressure, but he says he said the neck and backache for a few days. His neck exam was normal. His head CT was negative for any acute process. We will continue his home blood pressure medications, but supplement with PRN IV hydralazine. We will adjust his regimen if needed. (2) [id number] kidney injury Qualifiers: Acute renal failure type: unspecified Chronic kidney disease stage: stage 3 (moderate) Qualified Code(s): N17.9 - Acute kidney failure, unspecified; N18.3 - Chronic kidney disease, stage 3 (moderate) Is this a current diagnosis for this admission?: Yes Plan: His creatinine is elevated a bit above baseline. Likely due to dehydration. We will give him some IV fluids and monitor his electrolytes and urine output. (3) Dehydration Is this a current diagnosis for this admission?: Yes Plan: We will give IV fluids and monitor his urine output (4) Current every day smoker Is this a current diagnosis for this admission?: Yes Plan: Strongly encourage smoking cessation (5) Fall Qualifiers: Encounter type: initial encounter Qualified Code(s): W19.XXXA - Unspecified fall, initial encounter Is this a current diagnosis for this admission?: Yes Plan: Once we get his blood pressure under control and get him hydrated, will have physical therapy come see him. - Time Time Spent with patient: 35 or more minutes - Inpatient Certification Based on my medical assessment, after consideration of the patient's comorbidities, presenting symptoms, or acuity I expect that the services needed warrant INPATIENT care.: Yes I certify that my determination is in accordance with my understanding of Medicare's requirements for reasonable and necessary INPATIENT services [42 CFR 412.3e].: Yes Medical Necessity: Need Close Monitoring Due to Risk of Patient Decompensation, Need For IV Fluids, Need For Continuous Telemetry Monitoring, Risk of Complication if Not Cared For in Hospital
[2019-05-06] MEDS: NORMAL SALINE 1000 ML 1,000 ML IV PRN ×2 (16:00→23:40)
[2019-05-06] MEDS: HYDRALAZINE HCL INJ/PF 20 MG/1 ML SDV IV PRN ×2 (17:01→23:40)
[2019-05-06] MEDS: HEPARIN SOD (PORCINE) 5,000 UNIT/ML 1 ML VIAL SUBCUT SCH (21:22)
[2019-05-06] MEDS ORDERED: MONTELUKAST SODIUM 10 MG TABLET PO SCH (22:00)
[2019-05-06] MEDS ORDERED: ATORVASTATIN CALCIUM 20 MG TABLET PO SCH (22:00)
[2019-05-07 04:52] LABS: HEMATOCRIT 39.2 % (37.9-51.0); HEMOGLOBIN 13.3 g/dL (13.5-17.0); MEAN CORPUSCULAR HEMOGLOBIN 31.8 pg (27.0-33.4); MEAN CORPUSCULAR VOLUME 94 fl (80-97); PLATELET COUNT 244 10^3/uL (150-450); RED CELL DISTRIBUTION WIDTH 13.6 % (11.5-14.0)
[2019-05-07 05:11] LABS: ANION GAP 11 (5-19); BLOOD UREA NITROGEN 16 mg/dL (7-20); CALCIUM 8.8 mg/dL (8.4-10.2); CARBON DIOXIDE 20 mmol/L (22-30); CHLORIDE 107 mmol/L (98-107); GLUCOSE 86 mg/dL (75-110); POTASSIUM 3.9 mmol/L (3.6-5.0)
[2019-05-07] MEDS: HEPARIN SOD (PORCINE) 5,000 UNIT/ML 1 ML VIAL SUBCUT SCH ×2 (05:18→13:29)
[2019-05-07] MEDS ORDERED: ASPIRIN 81 MG TABLET, ENT COATED PO SCH (10:00)
[2019-05-07] MEDS ORDERED: AMLODIPINE BESYLATE 5 MG TABLET PO SCH (10:00)
[2019-05-07] MEDS ORDERED: TELMISARTAN 40 MG PO SCH (10:00)
[2019-05-07] MEDS ORDERED: (PENDING PHARMACY ID) (Multivit-Min/Fa/Lycopen/Lutein [Centrum Silver Men Tablet] 1 EACH) PO SCH (10:00)
[2019-05-07] MEDS ORDERED: MULTIVITAMIN TABLET PO SCH (10:00)
[2019-05-07] MEDS ORDERED: (PENDING PHARMACY ID) (Omega-3 Fatty Acids/Fish Oil [Fish Oil 1,000 Mg Capsule] 1 EACH) PO SCH (10:00)
[2019-05-07] MEDS ORDERED: OMEGA-3 ACID ETHYL ESTERS 1 GM CAPSULE PO SCH (10:00)
[2019-05-07] MEDS ORDERED: LOSARTAN POTASSIUM 25 MG TABLET PO SCH (10:00)
[2019-05-07 14:26] VITALS: BP 148/57
--- NOTE | 2019-05-07 18:06 | PDOC DISCHARGE SUMMARY ---
General - Admit/Disc Date/PCP Admission Date/Primary Care Provider: 05/06/19 15:08 JOSIE LOWE MD Discharge Date: 05/07/19 - Discharge Diagnosis (1) Hypertensive urgency Is this a current diagnosis for this admission?: Yes Summary: He got a dose of IV hydralazine in the ER, and then we just put him on his home medications and his blood pressure was relatively well controlled. (2) [id number] kidney injury Is this a current diagnosis for this admission?: Yes Summary: Resolved with IV fluids. Apparently he does not drink a lot of water at home. (3) Dehydration Is this a current diagnosis for this admission?: Yes Summary: Resolved with IV fluids. (4) Current every day smoker Is this a current diagnosis for this admission?: Yes Summary: Strongly encourage cessation (5) Fall Is this a current diagnosis for this admission?: Yes Summary: We had him evaluated by physical therapy and he walked 350 feet with standby assistance and was independent with transfers. They recommended possibly a single-point cane for balance. - Additional Information Resuscitation Status: Full Code Discharge Diet: Cardiac Discharge Activity: Activity As Tolerated, Balance Activity w/Rest Home Medications: Telmisartan [Micardis 20 mg Tablet] 40 mg PO DAILY 05/09/13 Amlodipine Besylate [Norvasc 5 mg Tablet] 5 mg PO DAILY 05/06/19 Aspirin [Ecotrin 81 mg EC Tablet] 81 mg PO DAILY 05/06/19 Montelukast Sodium [Singulair 10 mg Tablet] 10 mg PO QHS 05/06/19 Multivit-Min/FA/Lycopen/Lutein [Centrum Silver Men Tablet] 1 each PO DAILY 05/06/19 Flynn-3 Fatty Acids/Fish Oil [Fish Oil 1,000 mg Capsule] 1 each PO DAILY 05/06/19 Rosuvastatin Calcium [Crestor] 10 mg PO QHS 05/06/19 History of Present Illness History of Present Illness: SHEMAR KING is a 78 year old male who is a current every day smoker with a history of COPD and hypertension hyperlipidemia who came to the hospital about a week and a half ago with dehydration and heat exhaustion. He began to feel better after some IV fluids and then went home. Said he was in his usual state of health until this morning when he went outside to do some yard work. He told me he was only out there for 20 to 30 minutes but he told someone else he was up there for an hour or 2. What ever the case, he said that essentially the same thing happened to him this time is happened a week and a half ago: He had been out in the yard doing some work for some length of time when his legs began to feel weak and shaky and then he fell down his knees. Apparently EMS came to get him this time. He was sweaty and tachypneic apparently for EMS. There is a nurse who works in this hospital who was with him in the ER and she says that he is sort of tremulous and sort of displays mild motor agitation at baseline. He gave a urine sample and it was very concentrated. His creatinine was little bit elevated above baseline. His blood pressure was also substantially elevated. He said he takes his blood pressure medicine at night and says that he took it last night. His nurse friend said he does not drink anywhere near enough water, and the patient agreed with that statement. Other than his blood pressure, his vital signs were remarkable, except for his respiratory rate, and his nurse friend said that he always kind of breathes like that. He denies any chest pain or shortness of breath. He was supposedly hypoxemic initially but he is off nasal cannula now. He said he felt like he had a cramp in 1 of his legs earlier. He said now he otherwise feels fine. He is being admitted for some IV fluids and blood pressure control. Hospital Course Hospital Course: He was given some IV fluids and put back on his usual blood pressure medicat ions. His blood pressure was pretty well controlled with a systolic in the 140s. I suspect that he does not always take his medication at home. It was said that he does not drink very much water at home and have been outside working in the heat. He responded very well to IV fluids. We had physical therapy evaluate him because he fell at home and had to crawl on his knees to get back into the house. We had him evaluated by physical therapy and for them he was independent with transfers and walked 350 feet with standby only. He was advised to take his medications as prescribed, make sure he drinks enough water to keep his urine fairly light-colored, and that he avoid working outside dur ing the hot parts of the day. His labs and examination were reassuring he was discharged in good condition. Physical Exam Vital Signs: Temp Pulse Resp BP Pulse Ox 98.2 F 99 24 H 148/57 H 97 05/07/19 14:24 05/07/19 14:24 05/07/19 14:24 05/07/19 14:24 05/07/19 14:24 Intake & Output 05/06/19 05/07/19 05/08/19 06:59 06:59 06:59 Intake Total 1958 600 Output Total 200 Balance 1758 600 Weight 79.6 kg General appearance: PRESENT: no acute distress, cooperative, disheveled, obese, other - Smells strongly of tobacco smoke Respiratory exam: PRESENT: clear to auscultation caio - A bit diminished but clear, symmetrical, tachypnea, unlabored. ABSENT: accessory muscle use, chest wall tenderness, crackles, prolonged expiratory phas, rhonchi, wheezes Cardiovascular exam: PRESENT: RRR, +S1, +S2. ABSENT: systolic murmur Pulses: ABSENT: normal carotid pulses Vascular exam: ABSENT: normal capillary refill GI/Abdominal exam: PRESENT: normal bowel sounds, soft. ABSENT: distended, guarding, rebound, tenderness Extremities exam: ABSENT: clubbing, joint swelling, pedal edema Musculoskeletal exam: PRESENT: normal inspection. ABSENT: deformity Neurological exam: PRESENT: alert, awake, oriented to person, oriented to place, oriented to situation Psychiatric exam: PRESENT: appropriate affect, normal mood Skin exam: PRESENT: dry, warm, other - He had bandaged abrasions on both knees Results Laboratory Results: 05/07/19 03:51 05/07/19 03:51 05/07/19 05/07/19 03:51 03:51 WBC 10.0 RBC 4.20 L Hgb 13.3 L Hct 39.2 MCV 94 MCH 31.8 MCHC 34.0 RDW 13.6 Plt Count 244 Sodium 137.7 Potassium 3.9 Chloride 107 Carbon Dioxide 20 L Anion Gap 11 BUN 16 Creatinine 0.82 Est GFR ( Amer) > 60 Glucose 86 Calcium 8.8 05/06/19 05/06/19 05/06/19 09:45 09:45 14:40 Creatine Kinase 71 Troponin I 0.037 0.068 Impressions: Head CT 05/06/19 12:03 IMPRESSION: NO ACUTE INTRACRANIAL FINDINGS. EVIDENCE OF ACUTE STROKE: NO. Qualifiers - * PATIENT BEING DISCHARGED WITH ANY OF THE FOLLOWING DIAGNOSIS: No Acute Heart Failure - Is this a Heart Failure Patient?: No Plan Time Spent: Greater than 30 Minutes
== END 2019-05-07 14:57 | disposition home or self-care (01) | DRG 305 ==
LOC: ER 09:21 → EH 15:08 → 4N 18:43
PROVIDERS: ADMIT Family Medicine; ATTEND Family Medicine
DX: I16.0 Hypertensive urgency (principal); N17.9 Acute kidney failure, unspecified; E86.0 Dehydration; I12.9 Hypertensive chronic kidney disease with stage 1 through stage 4 chronic kidney disease, or unspecified chronic kidney disease; N18.3 Chronic kidney disease, stage 3 (moderate); I25.10 Atherosclerotic heart disease of native coronary artery without angina pectoris; E78.00 Pure hypercholesterolemia, unspecified; J44.9 Chronic obstructive pulmonary disease, unspecified; F17.210 Nicotine dependence, cigarettes, uncomplicated; S80.212A Abrasion, left knee, initial encounter; S80.211A Abrasion, right knee, initial encounter; W18.39XA Other fall on same level, initial encounter; Y93.89 Activity, other specified; Y92.096 Garden or yard of other non-institutional residence as the place of occurrence of the external cause
CPT/HCPCS: 36415; 70450; 71046; 80048; 80053; 81001; 82550; 82803; 83735; 84484; 85025; 85027; 93005; 93010; 94640; 96361; 96374; 99285; J0360; J1644; J3010; J7030; J7620